=== PATIENT | female | born 1965 | race Caucasian/White ===

== ENCOUNTER 2020-06-15 01:40 | Inpatient (IN) | payer SELFPAY ==
[~2020-06-15] VITALS: Ht 157.5 cm; Wt 70.8 kg
[2020-06-15 01:47] VITALS: BP_SYST 134
[2020-06-15] MEDS ORDERED: KETOROLAC TROMETHAMINE 30 MG VIAL IVP ONE (02:15)
[2020-06-15] MEDS ORDERED: NACL 0.9% 1,000 ML IV ONE (02:15)
[2020-06-15 02:23] LABS: BASOPHILS % (AUTO) 0.1 % (0.0-2.0); EOSINOPHILS # (AUTO) 0.1 K/uL (0.0-0.4); EOSINOPHILS % (AUTO) 0.9 % (0.0-4.0); HEMATOCRIT 40.2 % (36-48); HEMOGLOBIN 13.3 g/dL (12.0-16.0); LYMPHOCYTES # (AUTO) 2.8 K/uL (1.0-5.5); LYMPHOCYTES % (AUTO) 24.1 % (20.5-51.5); MEAN CORPUSCULAR HEMOGLOBIN 31 pg (27-31); MEAN CORPUSCULAR HGB CONC 33 % (32-36); MEAN CORPUSCULAR VOLUME 94 fL (79.0-98.0); MONOCYTES # (AUTO) 0.6 K/uL (0.0-1.0); NEUTROPHILS # (AUTO) 8.2 K/uL (1.8-7.7); NEUTROPHILS % (AUTO) 69.9 % (40.0-70.0); PLATELET COUNT (AUTO) 173 K/uL (130-430); RED BLOOD CELL COUNT(AUTO) 4.29 MIL/uL (4.2-6.2); RED CELL DISTRIBUTION WIDTH 13.2 % (9.0-15.0); WHITE BLOOD COUNT (AUTO) 11.8 K/uL (4.8-10.8)
[2020-06-15 02:27] LABS: INR 0.9 (0.8-1.2); PROTHROMBIN TIME 9.6 SECS (9.5-12.5)
[2020-06-15 02:32] LABS: ALBUMIN 3.6 g/dL (3.4-4.8); CALCIUM 8.9 mg/dL (8.4-11.0); CREATININE 0.58 mg/dL (0.55-1.30); POTASSIUM 3.6 mmol/L (3.5-5.1); TOTAL BILIRUBIN 0.3 mg/dL (0.0-1.0)
[2020-06-15 03:27] LABS: BILIRUBIN,URINE NEGATIVE (NEGATIVE); BLOOD, URINE NEGATIVE (NEGATIVE); CLARITY/URINE CLEAR (CLEAR); COLOR,URINE YELLOW (YELLOW); GLUCOSE,URINE 1+ (NEGATIVE); KETONES,URINE 1+ (NEGATIVE); LEUKOCYTE ESTERASE ,URINE NEGATIVE (NEGATIVE); NITRITE, URINE NEGATIVE (NEGATIVE); PROTEIN URINE NEGATIVE (NEGATIVE); UROBILINOGEN,URINE 0.2 (0.2-1.0)
[2020-06-15] MEDS ORDERED: PIPERACILLIN/TAZO 3.375 GM in NS 50 ML IV ONE (04:00)
[2020-06-15] MEDS ORDERED: MORPHINE 2 MG/ML INJ. SYRINGE IVP PRN (04:00)
[2020-06-15] MEDS ORDERED: DEXTROSE 50%-WATER 50 ML DISP.SYRIN IVP PRN (07:45)
[2020-06-15] MEDS ORDERED: GLUCOSE 15 GM GEL (in 37.5 GM TUBE) PO PRN (07:45)
[2020-06-15] MEDS ORDERED: D5W 1,000 ML IV PRN (07:45)
[2020-06-15] MEDS: ONDANSETRON HCL 4 MG/2 ML VIAL IVP PRN ×2 (08:36→13:01)
[2020-06-15] MEDS: NACL 0.9% 1,000 ML IV SCH ×3 (08:40→23:14)
[2020-06-15] MEDS: PANTOPRAZOLE SODIUM 40 MG/VIAL (PROTONIX) IVP SCH (08:43)
[2020-06-15] MEDS ORDERED: PIPERACILLIN/TAZOBACTAM 3.375 GM/VIAL (ZOSYN) IV ONE (08:44)
[2020-06-15] MEDS ORDERED: METF-510 PO (08:56)
[2020-06-15] MEDS ORDERED: GLIP10TA21 PO ×2 (08:56)
[2020-06-15 09:16] LABS: ALBUMIN 3.3 g/dL (3.4-4.8); BILIRUBIN,DIRECT 0.2 mg/dL (0.0-0.3); CALCIUM 8.1 mg/dL (8.4-11.0); CREATININE 0.48 mg/dL (0.55-1.30); POTASSIUM 3.5 mmol/L (3.5-5.1); TOTAL BILIRUBIN 0.4 mg/dL (0.0-1.0)
[2020-06-15] MEDS: MORPHINE 4 MG/ML INJ. SYRINGE IVP PRN ×2 (09:33→13:05)
[2020-06-15 09:41] LABS: BASOPHILS # (AUTO) 0.2 K/uL (0.0-0.2); BASOPHILS % (AUTO) 2.2 % (0.0-2.0); EOSINOPHILS # (AUTO) 0.3 K/uL (0.0-0.4); EOSINOPHILS % (AUTO) 3.7 % (0.0-4.0); HEMATOCRIT 37.7 % (36-48); HEMOGLOBIN 12.7 g/dL (12.0-16.0); LYMPHOCYTES # (AUTO) 1.3 K/uL (1.0-5.5); LYMPHOCYTES % (AUTO) 14.3 % (20.5-51.5); MEAN CORPUSCULAR HEMOGLOBIN 31 pg (27-31); MEAN CORPUSCULAR HGB CONC 34 % (32-36); MEAN CORPUSCULAR VOLUME 93 fL (79.0-98.0); MONOCYTES # (AUTO) 0.3 K/uL (0.0-1.0); NEUTROPHILS # (AUTO) 7.1 K/uL (1.8-7.7); NEUTROPHILS % (AUTO) 76.8 % (40.0-70.0); PLATELET COUNT (AUTO) 153 K/uL (130-430); RED BLOOD CELL COUNT(AUTO) 4.05 MIL/uL (4.2-6.2); RED CELL DISTRIBUTION WIDTH 13.1 % (9.0-15.0); WHITE BLOOD COUNT (AUTO) 9.2 K/uL (4.8-10.8)
[2020-06-15 10:33] VITALS: BP_SYST 133
[2020-06-15 11:10] VITALS: BP_SYST 133
[2020-06-15] MEDS ORDERED: FLU VACC QS2020-21 (6 mos & up) 0.5 ML/SYRINGE I.M. PRN (11:30)
[2020-06-15 12:00] VITALS: BP_SYST 143
[2020-06-15] MEDS ORDERED: NALOXONE HCL 0.4 MG/ML AMP (NARCAN) IVP PRN (14:45)
[2020-06-15] MEDS: metroNIDAZOLE 500 mg/NS 100 ML IV SCH ×2 (15:07→21:46)
[2020-06-15] MEDS: LEVOFLOXACIN 500 MG/D5W 100 ML IV SCH (15:08)
[2020-06-15 15:45] VITALS: BP_SYST 127
[2020-06-15] MEDS: HYDROmorphone 1 MG INJ. 1 MG/ML AMPUL IVP PRN (16:49)
[2020-06-15] MEDS ORDERED: HYDROmorphone 1 MG INJ. 1 MG/ML AMPUL IVP PRN (18:30)
[2020-06-15] MEDS ORDERED: KETOROLAC TROMETHAMINE 30 MG VIAL IVP PRN (18:30)
[2020-06-15] MEDS ORDERED: ONDANSETRON HCL 4 MG/2 ML VIAL IVP PRN ×2 (18:30→19:45)
[2020-06-15] MEDS ORDERED: MORPHINE 4 MG/ML INJ. SYRINGE IVP PRN (19:45)
[2020-06-15] MEDS ORDERED: HYDROmorphone 2 MG/ML VIAL IVP PRN (19:45)
[2020-06-15] MEDS: INSULIN LISPRO SLIDING SCALE 100 UNITS/ML VIAL (humaLOG) SUBCUT PRN (23:24)
[2020-06-16 00:22] VITALS: BP_SYST 113
[2020-06-16] MEDS: metroNIDAZOLE 500 mg/NS 100 ML IV SCH ×3 (06:04→21:41)
[2020-06-16] MEDS: INSULIN LISPRO SLIDING SCALE 100 UNITS/ML VIAL (humaLOG) SUBCUT PRN ×3 (06:07→23:32)
[2020-06-16 07:22] LABS: BASOPHILS % (AUTO) 0.3 % (0.0-2.0); EOSINOPHILS % (AUTO) 0.3 % (0.0-4.0); HEMATOCRIT 36.4 % (36-48); HEMOGLOBIN 12.2 g/dL (12.0-16.0); LYMPHOCYTES # (AUTO) 2.3 K/uL (1.0-5.5); LYMPHOCYTES % (AUTO) 24.2 % (20.5-51.5); MEAN CORPUSCULAR HEMOGLOBIN 31 pg (27-31); MEAN CORPUSCULAR HGB CONC 34 % (32-36); MEAN CORPUSCULAR VOLUME 94 fL (79.0-98.0); MONOCYTES # (AUTO) 0.9 K/uL (0.0-1.0); MONOCYTES % (AUTO) 9.8 % (1.7-9.3); NEUTROPHILS # (AUTO) 6.3 K/uL (1.8-7.7); NEUTROPHILS % (AUTO) 65.4 % (40.0-70.0); PLATELET COUNT (AUTO) 152 K/uL (130-430); RED BLOOD CELL COUNT(AUTO) 3.89 MIL/uL (4.2-6.2); RED CELL DISTRIBUTION WIDTH 13.3 % (9.0-15.0); WHITE BLOOD COUNT (AUTO) 9.6 K/uL (4.8-10.8)
[2020-06-16 07:52] LABS: ALBUMIN 2.9 g/dL (3.4-4.8); CREATININE 0.49 mg/dL (0.55-1.30); POTASSIUM 4.1 mmol/L (3.5-5.1); THYROID STIMULATING HORMONE 0.77 uIu/mL (0.36-3.74); TOTAL BILIRUBIN 0.6 mg/dL (0.0-1.0)
[2020-06-16 08:00] VITALS: BP_SYST 122
[2020-06-16] MEDS ORDERED: INSULIN NPH 100 UNITS/ML 10 ML VIAL SUBCUT ONE (08:15)
[2020-06-16] MEDS: HYDROcodone/ACETAMIN 5-325 MG TAB (NORCO/ VICODIN) PO PRN ×3 (08:48→19:47)
[2020-06-16] MEDS: PANTOPRAZOLE SODIUM 40 MG/VIAL (PROTONIX) IVP SCH (08:48)
[2020-06-16] MEDS: ENOXAPARIN SODIUM 30 MG/0.3 ML SYRINGE SUBCUT SCH (08:51)
[2020-06-16] MEDS: NACL 0.9% 1,000 ML IV SCH ×2 (10:00→20:00)
[2020-06-16 12:00] VITALS: BP_SYST 110
[2020-06-16] MEDS: LEVOFLOXACIN 500 MG/D5W 100 ML IV SCH (13:01)
[2020-06-16 16:14] VITALS: BP_SYST 117
[2020-06-16 20:00] VITALS: BP_SYST 140
[2020-06-17] VITALS: BP_SYST 116
[2020-06-17] MEDS: HYDROmorphone 1 MG INJ. 1 MG/ML AMPUL IVP PRN (01:47)
[2020-06-17] MEDS: metroNIDAZOLE 500 mg/NS 100 ML IV SCH ×3 (05:16→21:29)
[2020-06-17] MEDS: INSULIN LISPRO SLIDING SCALE 100 UNITS/ML VIAL (humaLOG) SUBCUT PRN ×4 (05:21→20:27)
[2020-06-17 07:10] LABS: BASOPHILS % (AUTO) 0.4 % (0.0-2.0); EOSINOPHILS # (AUTO) 0.1 K/uL (0.0-0.4); EOSINOPHILS % (AUTO) 0.7 % (0.0-4.0); HEMATOCRIT 36.5 % (36-48); HEMOGLOBIN 12.2 g/dL (12.0-16.0); LYMPHOCYTES # (AUTO) 3.4 K/uL (1.0-5.5); LYMPHOCYTES % (AUTO) 33.7 % (20.5-51.5); MEAN CORPUSCULAR HEMOGLOBIN 32 pg (27-31); MEAN CORPUSCULAR HGB CONC 34 % (32-36); MEAN CORPUSCULAR VOLUME 94 fL (79.0-98.0); MONOCYTES # (AUTO) 0.9 K/uL (0.0-1.0); MONOCYTES % (AUTO) 8.5 % (1.7-9.3); NEUTROPHILS # (AUTO) 5.7 K/uL (1.8-7.7); NEUTROPHILS % (AUTO) 56.7 % (40.0-70.0); PLATELET COUNT (AUTO) 161 K/uL (130-430); RED BLOOD CELL COUNT(AUTO) 3.89 MIL/uL (4.2-6.2); RED CELL DISTRIBUTION WIDTH 13.4 % (9.0-15.0); WHITE BLOOD COUNT (AUTO) 10.1 K/uL (4.8-10.8)
[2020-06-17 07:26] LABS: ALBUMIN 2.9 g/dL (3.4-4.8); CREATININE 0.4 mg/dL (0.55-1.30); POTASSIUM 3.4 mmol/L (3.5-5.1); TOTAL BILIRUBIN 0.6 mg/dL (0.0-1.0)
[2020-06-17 08:00] VITALS: BP_SYST 119
[2020-06-17] MEDS: PANTOPRAZOLE SODIUM 40 MG/VIAL (PROTONIX) IVP SCH (08:19)
[2020-06-17] MEDS: ENOXAPARIN SODIUM 30 MG/0.3 ML SYRINGE SUBCUT SCH (08:23)
[2020-06-17 12:00] VITALS: BP_SYST 115
[2020-06-17] MEDS: LEVOFLOXACIN 500 MG/D5W 100 ML IV SCH (14:50)
[2020-06-17 16:02] VITALS: BP_SYST 117
[2020-06-17] MEDS ORDERED: POTASSIUM CHLORIDE 10 MEQ TAB.PRT.SR PO ONE (17:15)
[2020-06-17 20:00] VITALS: BP_SYST 124
[2020-06-17] MEDS: HYDROcodone/ACETAMIN 5-325 MG TAB (NORCO/ VICODIN) PO PRN (23:00)
[2020-06-18 00:05] VITALS: BP_SYST 123
[2020-06-18] MEDS: metroNIDAZOLE 500 mg/NS 100 ML IV SCH ×2 (05:51→13:00)
[2020-06-18 06:47] LABS: CALCIUM 8.8 mg/dL (8.4-11.0); CREATININE 0.49 mg/dL (0.55-1.30)
[2020-06-18 07:14] LABS: HEPATITIS A AB, IgM Negative (Negative); HEPATITIS B CORE AB, IgM Negative (Negative); HEPATITIS B SURFACE AG Negative (Negative)
[2020-06-18] MEDS: PANTOPRAZOLE SODIUM 40 MG/VIAL (PROTONIX) IVP SCH (08:12)
[2020-06-18] MEDS: ENOXAPARIN SODIUM 30 MG/0.3 ML SYRINGE SUBCUT SCH (08:13)
[2020-06-18 08:15] VITALS: BP_SYST 117
[2020-06-18] MEDS: INSULIN LISPRO SLIDING SCALE 100 UNITS/ML VIAL (humaLOG) SUBCUT PRN (10:34)
[2020-06-18 12:06] VITALS: BP_SYST 121
[2020-06-18] MEDS: HYDROcodone/ACETAMIN 5-325 MG TAB (NORCO/ VICODIN) PO PRN (12:55)
[2020-06-18 13:55] VITALS: BP_SYST 121
[2020-06-18] MEDS ORDERED: FLU VACC QS2020-21 (6 mos & up) 0.5 ML/SYRINGE I.M. PRN (14:15)
[2020-06-18] MEDS: LEVOFLOXACIN 500 MG/D5W 100 ML IV SCH (14:23)
[2020-06-18] MEDS ORDERED: HYDR-4272 PO (14:59)
[2020-06-18 16:05] VITALS: BP_SYST 101
[2020-06-18 16:06] LABS: ANTI NUCLEAR AB WITH REFLEX Negative (Negative)
[2020-06-19 12:51] LABS: FERRITIN 222 ng/mL (15-150)
[2020-06-20 09:06] LABS: ANTI-SMOOTH MUSCLE AB 4 Units (0-19)
== END 2020-06-18 17:35 | disposition home or self-care (01) | DRG 417 ==
LOC: SED 01:40 → SMU 03:54 → STU 21:19 → SMU 06-16 19:14
PROVIDERS: ADMIT Internal Medicine; ATTEND Internal Medicine
PROC: 0F944ZX Drainage of Gallbladder, Percutaneous Endoscopic Approach, Diagnostic (ICD-10-PCS; 2020-06-15)
PROC: 0FT44ZZ Resection of Gallbladder, Percutaneous Endoscopic Approach (ICD-10-PCS; principal; 2020-06-15 17:48)
DX: K80.00 Calculus of gallbladder with acute cholecystitis without obstruction (principal); K65.3 Choleperitonitis; E11.9 Type 2 diabetes mellitus without complications; Z20.828 Contact with and (suspected) exposure to other viral communicable diseases; K82.A1 Gangrene of gallbladder in cholecystitis; E66.9 Obesity, unspecified; Z68.28 Body mass index [BMI] 28.0-28.9, adult; Z98.51 Tubal ligation status
CPT/HCPCS: 36415; 71045; 76700-TC; 80048; 80053; 80074; 80076; 81003; 82150-TC; 82728; 82962; 83516; 83605; 83690-TC; 83735-TC; 84443-TC; 85025; 85610-TC; 86038; 87040-TC; 87081; 88304; 93005; 96365; 96375; 99285; C1727; C9113; G0378; J1170; J1650; J1815; J1885; J1956; J2270; J2405; J2543; J3490; J7030

== ENCOUNTER 2021-03-07 21:45 | Emergency (ER) | payer MEDICAID ==
[~2021-03-07] VITALS: Ht 157.5 cm; Wt 66.7 kg
[~2021-03-07 21:45] MED LIST: HYDR-4272 PO; METF-518 PO
[2021-03-07 22:00] VITALS: BP_SYST 123
[2021-03-07 22:42] LABS: BILIRUBIN,URINE NEGATIVE (NEGATIVE); BLOOD, URINE NEGATIVE (NEGATIVE); CLARITY/URINE CLEAR (CLEAR); COLOR,URINE YELLOW (YELLOW); GLUCOSE,URINE 3+ (NEGATIVE); KETONES,URINE NEGATIVE (NEGATIVE); LEUKOCYTE ESTERASE ,URINE 1+ (NEGATIVE); NITRITE, URINE NEGATIVE (NEGATIVE); PH,URINE 6.5 (5.0-8.0); PROTEIN URINE NEGATIVE (NEGATIVE); UROBILINOGEN,URINE 0.2 (0.2-1.0)
[2021-03-07 22:57] LABS: BACTERIA,URINE FEW /HPF (None Seen); RBC,URINE 0-3 /HPF (0-3)
[2021-03-08] MEDS ORDERED: NITR-85 PO (02:09)
[2021-03-08 02:15] VITALS: BP_SYST 123
== END 2021-03-08 02:15 | disposition home or self-care (01) ==
LOC: SED 21:45
DX: N39.0 Urinary tract infection, site not specified (principal); D25.9 Leiomyoma of uterus, unspecified; Z79.899 Other long term (current) drug therapy
CPT/HCPCS: 76830-TC; 76857; 81000; 87086; 99284

== ENCOUNTER 2021-10-28 12:18 | Emergency (ER) | payer MEDICAID ==
[~2021-10-28] VITALS: Ht 162.6 cm; Wt 63.5 kg
[~2021-10-28 12:18] MED LIST changes: +NITR-85 PO
[2021-10-28 12:43] VITALS: BP_SYST 158
[2021-10-28] MEDS ORDERED: MECLIZINE HCL 25 MG TABLET (ANITVERT) PO ONE (12:45)
[2021-10-28] MEDS ORDERED: NACL 0.9% 1,000 ML IV ONE (13:00)
[2021-10-28 13:18] VITALS: BP_SYST 122
[2021-10-28 13:23] LABS: BASOPHILS % (AUTO) 0.5 % (0.0-2.0); EOSINOPHILS # (AUTO) 0.1 K/uL (0.0-0.4); EOSINOPHILS % (AUTO) 1.7 % (0.0-4.0); HEMATOCRIT 42.6 % (36-48); HEMOGLOBIN 14.3 g/dL (12.0-16.0); LYMPHOCYTES # (AUTO) 2.8 K/uL (1.0-5.5); LYMPHOCYTES % (AUTO) 40.8 % (20.5-51.5); MEAN CORPUSCULAR HEMOGLOBIN 31 pg (27-31); MEAN CORPUSCULAR HGB CONC 34 % (32-36); MEAN CORPUSCULAR VOLUME 94 fL (79.0-98.0); MONOCYTES # (AUTO) 0.5 K/uL (0.0-1.0); MONOCYTES % (AUTO) 7.6 % (1.7-9.3); NEUTROPHILS # (AUTO) 3.4 K/uL (1.8-7.7); NEUTROPHILS % (AUTO) 49.4 % (40.0-70.0); PLATELET COUNT (AUTO) 163 K/uL (130-430); RED BLOOD CELL COUNT(AUTO) 4.56 MIL/uL (4.2-6.2); RED CELL DISTRIBUTION WIDTH 13.5 % (9.0-15.0); WHITE BLOOD COUNT (AUTO) 6.8 K/uL (4.8-10.8)
[2021-10-28 13:40] LABS: CALCIUM 10.2 mg/dL (8.4-11.0); CREATININE 0.68 mg/dL (0.55-1.30)
[2021-10-28 13:52] LABS: ALBUMIN 3.7 g/dL (3.4-4.8); TOTAL BILIRUBIN 0.5 mg/dL (0.0-1.0)
== END 2021-10-28 14:05 | disposition home or self-care (01) ==
LOC: SED 12:18
DX: E11.65 Type 2 diabetes mellitus with hyperglycemia (principal); R42 Dizziness and giddiness; Z79.899 Other long term (current) drug therapy
CPT/HCPCS: 36415; 80053; 82962; 85025; 93005; 96360; 99284; J7030; J8597

== ENCOUNTER 2022-05-13 01:26 | Emergency (ER) | payer MEDICAID ==
[~2022-05-13] VITALS: Ht 154.9 cm; Wt 70.3 kg
[2022-05-13 01:52] VITALS: BP_SYST 129
--- NOTE | 2022-05-13 04:00 | NUR ---
ROSALVA Rosario at bedside examining patient.
[2022-05-13] MEDS ORDERED: VALA10002 PO (06:06)
--- NOTE | 2022-05-13 06:17 | NUR ---
Patient given written and verbal discharge instructions and verbalizes understanding. ER MD discussed with patient the results and treatment provided. Patient in stable condition. ID arm band removed. Rx of VALACYCLOVIR given. Patient educated on pain management and to follow up with PMD. Pain Scale . Opportunity for questions provided and answered. Medication side effect fact sheet provided.
== END 2022-05-13 06:16 | disposition home or self-care (01) ==
LOC: SED 01:26
DX: B02.29 Other postherpetic nervous system involvement (principal); R21 Rash and other nonspecific skin eruption; Z79.899 Other long term (current) drug therapy
CPT/HCPCS: 82962; 99283

== ENCOUNTER 2022-10-06 23:52 | Emergency (ER) | payer MEDICAID ==
[~2022-10-06] VITALS: Ht 154.9 cm; Wt 68.0 kg
[2022-10-06 23:52] VITALS: BP_SYST 127
[~2022-10-06 23:52] MED LIST changes: +VALA10002 PO
--- NOTE | 2022-10-06 23:52 | NUR ---
Patient triaged and placed in ER bed 8 for evaluation. Vital signs updated, denied any acute distress at this time. Daughter at bedside. Report given to STACY Glaser for continuity of care. Instructed to notify ED staff for any changes in condition or worsening of symptoms. Patient verbalized understanding.
--- NOTE | 2022-10-07 00:07 | NUR ---
Dr. Pedro at bedside examining the patient.
--- NOTE | 2022-10-07 00:15 | NUR ---
Portable x-ray done at bedside.
[2022-10-07] MEDS ORDERED: TRAM50TA2 PO (00:26)
--- NOTE | 2022-10-07 00:35 | NUR ---
Cam boot applied to left lower extremity by charge nurse. Pt tolerated well.
[2022-10-07 00:45] VITALS: BP_SYST 95
--- NOTE | 2022-10-07 00:45 | NUR ---
Patient given written and verbal discharge instructions and verbalizes understanding. ER MD discussed with patient the results and treatment provided. Patient in stable condition. ID arm band removed.Rx of Tramadol given. Patient educated on pain management and to follow up with PMD. Opportunity for questions provided and answered. Medication side effect fact sheet provided.
== END 2022-10-07 00:45 | disposition home or self-care (01) ==
LOC: SED 23:52
DX: M72.2 Plantar fascial fibromatosis (principal); M79.672 Pain in left foot; E11.9 Type 2 diabetes mellitus without complications; I10 Essential (primary) hypertension; Z79.899 Other long term (current) drug therapy
CPT/HCPCS: 99283

== ENCOUNTER 2022-11-23 15:20 | Emergency (ER) | payer MEDICAID ==
[~2022-11-23] VITALS: Ht 152.4 cm; Wt 59.0 kg
[~2022-11-23 15:20] MED LIST changes: +TRAM50TA2 PO
[2022-11-23 16:00] VITALS: BP_SYST 125
--- NOTE | 2022-11-23 18:00 | NUR ---
Pt triaged and ambulated to bed 6 by RN
--- NOTE | 2022-11-23 18:00 | NUR ---
ER at bedside examining patient.
[2022-11-23] MEDS ORDERED: ACETAMINOPHEN 325 MG TABLET PO ONE (18:15)
--- NOTE | 2022-11-23 19:25 | NUR ---
Pt bib daughter from doctor's office, ambulated to bed 6. Pt A&Ox4, able to make needs known. Pt is a arabic speaker, daughter at bedside to translate. Pt states she fell at doctor's office and landed on right shoulder. Pt states pain /10. Pt denies LOC. Pt denies hitting head. Pt denies N/V/D, fever and chills. Pt denies SOB and chest pain. Safety measures in place.
[2022-11-23 20:08] VITALS: BP_SYST 118
--- NOTE | 2022-11-23 20:08 | NUR ---
Patient given written and verbal discharge instructions and verbalizes understanding. ER Dr Chnag discussed with patient the results and treatment provided. Patient in stable condition. ID arm band removed. Patient educated on pain management and to follow up with PMD. Pain Scale 2/10. Opportunity for questions provided and answered. Medication side effect fact sheet provided.
== END 2022-11-23 20:08 | disposition home or self-care (01) ==
LOC: SED 15:20
DX: S40.012A Contusion of left shoulder, initial encounter (principal); E11.9 Type 2 diabetes mellitus without complications; I10 Essential (primary) hypertension; Z79.899 Other long term (current) drug therapy; W01.0XXA Fall on same level from slipping, tripping and stumbling without subsequent striking against object, initial encounter; Y93.89 Activity, other specified; Y92.89 Other specified places as the place of occurrence of the external cause; Y99.8 Other external cause status
CPT/HCPCS: 73030; 99284